=== PATIENT | female | born 1940 | race Caucasian/White ===

== ENCOUNTER 2016-07-28 10:56 | Inpatient (IN) | payer MEDICARE ==
[~2016-07-28] VITALS: Ht 157.5 cm; Wt 61.9 kg
[2016-07-28 04:24] VITALS: BP_SYST 158; BP_SYST 161; RESP 20; TEMP 98.2; BMI 25.0
[2016-07-28] MEDS ORDERED: DIPHENHYDRAMINE 50 MG/ML VIAL ONE (12:37)
[2016-07-28] MEDS ORDERED: DILAUDID 1 MG/ML AMP ONE (12:39)
[2016-07-28] MEDS ORDERED: METHYLPRED SOD SUCC 125 MG/2 ML VIAL ONE (12:39)
[2016-07-28] MEDS ORDERED: SODIUM CHLORIDE 0.9% 100 ML IV ONE (15:00)
[2016-07-28] MEDS ORDERED: CEFTRIAXONE 1 GM VIAL ONE (15:00)
[2016-07-28 16:24] VITALS: BP_SYST 158; BP_SYST 161; RESP 20; TEMP 98.2; Ht 157.5 cm; Wt 61.9 kg
[2016-07-28] MEDS ORDERED: DIPHENHYDRAMINE 25 MG CAP PO PRN (18:30)
[2016-07-28] MEDS ORDERED: SODIUM CHLORIDE 0.45% 1,000 ML IV SCH (18:30)
[2016-07-28] MEDS ORDERED: ACETAMINOPHEN 325 MG TAB PO PRN (18:30)
[2016-07-28 19:45] VITALS: BP_SYST 166; RESP 20; TEMP 99.4
[2016-07-28] MEDS: METHYLPRED SOD SUCC 40 MG VIAL IV SCH (20:20)
[2016-07-28] MEDS: PANTOPRAZOLE 40 MG TAB PO SCH (20:21)
[2016-07-28] MEDS: SUCRALFATE 1 GM TAB PO SCH (20:21)
[2016-07-28] MEDS: FLINTSTONES COMPLETE PO SCH (20:21)
[2016-07-28] MEDS: amLODIPine 5 MG TAB PO SCH (20:21)
[2016-07-28] MEDS: ENOXAPARIN 30 MG/0.3 ML SYR SUBQ SCH (20:22)
[2016-07-28 22:52] VITALS: BP_SYST 157; RESP 20; TEMP 98.4
[2016-07-28] MEDS: SODIUM BICARB 8.4% 100 ML in SODIUM CHLORIDE 0.45% 1,000 ML IV SCH (23:03)
[2016-07-29] MEDS: METHYLPRED SOD SUCC 40 MG VIAL IV SCH ×3 (00:29→15:12)
[2016-07-29 02:46] VITALS: BP_SYST 129; RESP 20; TEMP 99.6
[2016-07-29] MEDS: PANTOPRAZOLE 40 MG TAB PO SCH ×2 (06:31→15:12)
[2016-07-29] MEDS: SUCRALFATE 1 GM TAB PO SCH ×3 (06:31→15:12)
[2016-07-29 07:08] VITALS: BP_SYST 143; RESP 18; TEMP 98.7
[2016-07-29] MEDS ORDERED: MISSING DOSE XX ONE ×2 (07:30→22:35)
[2016-07-29] MEDS: CEFTRIAXONE 1 GM in SODIUM CHLORIDE 0.9% 50 ML IV SCH (08:39)
[2016-07-29] MEDS: amLODIPine 5 MG TAB PO SCH (08:39)
[2016-07-29] MEDS: FLINTSTONES COMPLETE PO SCH (08:39)
[2016-07-29] MEDS: SODIUM BICARB 8.4% 100 ML in SODIUM CHLORIDE 0.45% 1,000 ML IV SCH (08:40)
[2016-07-29] MEDS: ENOXAPARIN 30 MG/0.3 ML SYR SUBQ SCH (08:40)
[2016-07-29] MEDS: IRON SUCROSE COMPLEX 400 MG in SODIUM CHLORIDE 0.9% 250 ML IV SCH (10:03)
[2016-07-29 10:44] VITALS: BP_SYST 140; RESP 17; TEMP 98
[2016-07-29 15:47] VITALS: BP_SYST 118; RESP 18; TEMP 97.7
[2016-07-29 19:09] VITALS: BP_SYST 125; RESP 20; TEMP 98
[2016-07-29 23:00] VITALS: BP_SYST 129; RESP 20; TEMP 98.2
[2016-07-30] MEDS: METHYLPRED SOD SUCC 40 MG VIAL IV SCH ×4 (00:23→23:18)
[2016-07-30] MEDS: SODIUM BICARB 8.4% 100 ML in SODIUM CHLORIDE 0.45% 1,000 ML IV SCH ×2 (01:37→19:53)
[2016-07-30 02:59] VITALS: BP_SYST 146; RESP 20; TEMP 98
[2016-07-30] MEDS: SUCRALFATE 1 GM TAB PO SCH ×3 (06:12→17:15)
[2016-07-30] MEDS: PANTOPRAZOLE 40 MG TAB PO SCH ×2 (06:12→17:15)
[2016-07-30] MEDS ORDERED: SALINE FLUSH 5 ML FLUSH PRN (06:15)
[2016-07-30] MEDS: SODIUM CHLORIDE 0.9% FLUSH BAG 500 ML IV SCH (06:31)
[2016-07-30 07:15] VITALS: BP_SYST 133; RESP 19; TEMP 97.5
[2016-07-30] MEDS: CEFTRIAXONE 1 GM in SODIUM CHLORIDE 0.9% 50 ML IV SCH (08:16)
[2016-07-30] MEDS: SALINE FLUSH 5 ML FLUSH SCH ×2 (08:17→21:00)
[2016-07-30] MEDS: FLINTSTONES COMPLETE PO SCH (08:18)
[2016-07-30] MEDS: amLODIPine 5 MG TAB PO SCH (08:18)
[2016-07-30] MEDS: ENOXAPARIN 30 MG/0.3 ML SYR SUBQ SCH (08:21)
[2016-07-30] MEDS: IRON SUCROSE COMPLEX 400 MG in SODIUM CHLORIDE 0.9% 250 ML IV SCH (08:54)
[2016-07-30 10:57] VITALS: BP_SYST 142; RESP 18; TEMP 97.8
[2016-07-30 14:46] VITALS: BP_SYST 153; RESP 18; TEMP 97.6
[2016-07-30] MEDS ORDERED: MISSING DOSE XX ONE (18:10)
[2016-07-30 19:42] VITALS: BP_SYST 160; RESP 20; TEMP 98.1
[2016-07-31] VITALS (7 sets, daily range): BP systolic 147–163; RESP 18–22; TEMP 97.7–98.6
[2016-07-31] MEDS: NEB-ALBUTEROL 2.5 MG/3 ML INH ONE ×2 (03:15→03:17)
[2016-07-31] MEDS: DUONEB INH PRN ×6 (03:18→22:54)
[2016-07-31] MEDS: SODIUM CHLORIDE 0.9% FLUSH BAG 500 ML IV SCH (06:16)
[2016-07-31] MEDS: SUCRALFATE 1 GM TAB PO SCH ×3 (06:17→15:42)
[2016-07-31] MEDS: PANTOPRAZOLE 40 MG TAB PO SCH ×2 (06:17→15:42)
[2016-07-31] MEDS: CEFTRIAXONE 1 GM in SODIUM CHLORIDE 0.9% 50 ML IV SCH (08:31)
[2016-07-31] MEDS: METHYLPRED SOD SUCC 40 MG VIAL IV SCH ×2 (08:31→15:42)
[2016-07-31] MEDS: amLODIPine 5 MG TAB PO SCH (08:33)
[2016-07-31] MEDS: ENOXAPARIN 30 MG/0.3 ML SYR SUBQ SCH (08:34)
[2016-07-31] MEDS: FLINTSTONES COMPLETE PO SCH (08:35)
[2016-07-31] MEDS ORDERED: Furosemide 100 MG/10 ML VIAL IV ONE (08:45)
[2016-07-31] MEDS ORDERED: SALINE FLUSH 10 ML FLUSH PRN (10:05)
[2016-07-31] MEDS: SALINE FLUSH 5 ML FLUSH SCH (10:05)
[2016-07-31] MEDS: IRON SUCROSE COMPLEX 400 MG in SODIUM CHLORIDE 0.9% 250 ML IV SCH (10:26)
[2016-07-31] MEDS: SALINE FLUSH 10 ML FLUSH SCH ×2 (12:01→20:10)
[2016-08-01] VITALS (9 sets, daily range): BP systolic 138–184; RESP 18–22; TEMP 97.4–99.2
[2016-08-01] MEDS: METHYLPRED SOD SUCC 40 MG VIAL IV SCH ×3 (00:32→16:34)
[2016-08-01] MEDS: SODIUM CHLORIDE 0.9% FLUSH BAG 500 ML IV SCH ×2 (05:33→06:29)
[2016-08-01] MEDS: PANTOPRAZOLE 40 MG TAB PO SCH ×2 (06:29→16:32)
[2016-08-01] MEDS: SUCRALFATE 1 GM TAB PO SCH ×3 (06:29→16:32)
[2016-08-01] MEDS: DUONEB INH PRN ×4 (06:49→18:36)
[2016-08-01] MEDS: FLINTSTONES COMPLETE PO SCH (08:39)
[2016-08-01] MEDS: amLODIPine 5 MG TAB PO SCH (08:39)
[2016-08-01] MEDS: ENOXAPARIN 30 MG/0.3 ML SYR SUBQ SCH (08:40)
[2016-08-01] MEDS: CEFTRIAXONE 1 GM in SODIUM CHLORIDE 0.9% 50 ML IV SCH (08:40)
[2016-08-01] MEDS: SALINE FLUSH 10 ML FLUSH SCH ×2 (08:41→21:37)
[2016-08-01] MEDS: Furosemide 100 MG/10 ML VIAL IV SCH (16:34)
[2016-08-01] MEDS: ALPRAZOLAM 0.25 MG TAB PO SCH (21:36)
[2016-08-01] MEDS: NYSTATIN 500,000 UNITS/5 ML SUSP SWISH.SWAL SCH (21:37)
[2016-08-02] VITALS (11 sets, daily range): BP systolic 128–165; RESP 20–24; TEMP 97.4–98.2
[2016-08-02] MEDS: ALPRAZOLAM 0.25 MG TAB PO SCH ×3 (03:43→20:40)
[2016-08-02] MEDS: SODIUM CHLORIDE 0.9% FLUSH BAG 500 ML IV SCH ×2 (06:00→06:09)
[2016-08-02] MEDS: SUCRALFATE 1 GM TAB PO SCH ×3 (06:08→16:30)
[2016-08-02] MEDS: PANTOPRAZOLE 40 MG TAB PO SCH ×2 (06:08→16:30)
[2016-08-02] MEDS: DUONEB INH PRN ×4 (07:18→22:56)
[2016-08-02] MEDS: SALINE FLUSH 10 ML FLUSH SCH ×2 (10:03→20:00)
[2016-08-02] MEDS: NYSTATIN 500,000 UNITS/5 ML SUSP SWISH.SWAL SCH ×4 (10:03→20:41)
[2016-08-02] MEDS: FLINTSTONES COMPLETE PO SCH (10:04)
[2016-08-02] MEDS: amLODIPine 5 MG TAB PO SCH (10:05)
[2016-08-02] MEDS: ENOXAPARIN 30 MG/0.3 ML SYR SUBQ SCH (10:05)
[2016-08-02] MEDS: CEFTRIAXONE 1 GM in SODIUM CHLORIDE 0.9% 50 ML IV SCH (10:06)
[2016-08-02] MEDS: Furosemide 100 MG/10 ML VIAL IV SCH (10:06)
[2016-08-02] MEDS: SODIUM BICARB 8.4% 50 ML in SODIUM CHLORIDE 0.45% 1,000 ML IV SCH (11:26)
[2016-08-02] MEDS ORDERED: MISSING DOSE XX ONE (23:45)
[2016-08-03] VITALS (7 sets, daily range): BP systolic 149–159; RESP 20; TEMP 97.3–97.9
[2016-08-03] MEDS: SODIUM BICARB 8.4% 50 ML in SODIUM CHLORIDE 0.45% 1,000 ML IV SCH (00:37)
[2016-08-03] MEDS: ALPRAZOLAM 0.25 MG TAB PO SCH ×2 (03:20→12:00)
[2016-08-03] MEDS: SODIUM CHLORIDE 0.9% FLUSH BAG 500 ML IV SCH ×2 (06:00→06:12)
[2016-08-03] MEDS: SUCRALFATE 1 GM TAB PO SCH ×3 (06:11→15:57)
[2016-08-03] MEDS: PANTOPRAZOLE 40 MG TAB PO SCH ×2 (06:11→15:57)
[2016-08-03] MEDS: DUONEB INH PRN ×3 (06:38→14:23)
[2016-08-03] MEDS: SALINE FLUSH 10 ML FLUSH SCH (08:00)
[2016-08-03] MEDS: amLODIPine 5 MG TAB PO SCH (08:50)
[2016-08-03] MEDS: FLINTSTONES COMPLETE PO SCH (08:50)
[2016-08-03] MEDS: ENOXAPARIN 30 MG/0.3 ML SYR SUBQ SCH (08:50)
[2016-08-03] MEDS: NYSTATIN 500,000 UNITS/5 ML SUSP SWISH.SWAL SCH ×3 (08:50→15:57)
[2016-08-03] MEDS: CEFTRIAXONE 1 GM in SODIUM CHLORIDE 0.9% 50 ML IV SCH (09:06)
[2016-08-03] MEDS ORDERED: MISSING DOSE XX ONE (17:35)
== END 2016-08-03 19:07 | disposition home health service (06) | DRG 602 ==
LOC: ENRESERVDT → ENRESERVTM → ER 10:56 → ENPENDDIS 15:38 → EMR 15:38 → 3NT 16:26
PROVIDERS: ADMIT Internal Medicine; ATTEND Internal Medicine
CPT/HCPCS: 71010; 76770; 80053; 81050; 82436; 82575; 84156; 84166; 84300; 85007; 85025; 85027; 85652; 86141; 93306; 93971; 94640; 94799; 96365; 96375

== ENCOUNTER 2016-08-11 10:31 | Inpatient (IN) | payer MEDICARE ==
[~2016-08-11] VITALS: Ht 160 cm; Wt 71.4 kg
[2016-08-11] MEDS ORDERED: DUONEB INH ONE ×2 (11:23)
[2016-08-11] MEDS ORDERED: SODIUM CHLORIDE 0.9% 1,000 ML ONE (12:19)
[2016-08-11] MEDS ORDERED: CEFTRIAXONE 1 GM VIAL ONE (14:14)
[2016-08-11] MEDS ORDERED: SODIUM CHLORIDE 0.9% 100 ML IV ONE (14:14)
[2016-08-11] MEDS ORDERED: AZITHROMYCIN 500 MG VIAL IV ONE (15:30)
[2016-08-11] MEDS ORDERED: SODIUM CHLORIDE 0.9% 250 ML IV ONE (15:30)
[2016-08-11] MEDS ORDERED: VANCOMYCIN 1,000 MG in SODIUM CHLORIDE 0.9% 250 ML IV ONE (16:25)
[2016-08-11 18:05] VITALS: BP_SYST 120; BP_SYST 122; RESP 18; TEMP 97.6
[2016-08-11 18:07] VITALS: Ht 160 cm; Wt 71.4 kg
[2016-08-11] MEDS ORDERED: DUONEB INH SCH (19:00)
[2016-08-11] MEDS: DUONEB INH SCH ×2 (19:00→23:42)
[2016-08-11 19:11] VITALS: BP_SYST 123; RESP 14; TEMP 97.4
[2016-08-11] MEDS: PIPERACIL/TAZO 2.25GM/50ML 50 ML IV SCH ×2 (19:45→23:41)
[2016-08-11] MEDS ORDERED: MISSING DOSE XX ONE (20:45)
[2016-08-11] MEDS: POTASSIUM CHLORIDE IV SCH (21:06)
[2016-08-11] MEDS: DEXTROSE 5% IV SCH (21:06)
[2016-08-11 22:28] VITALS: BP_SYST 134; RESP 10; TEMP 97.5
[2016-08-11 23:44] VITALS: RESP 20
[2016-08-12] VITALS (8 sets, daily range): BP systolic 127–142; RESP 12–16; TEMP 97.4–98.7
[2016-08-12] MEDS: DUONEB INH SCH ×6 (02:40→22:59)
[2016-08-12] MEDS ORDERED: MISSING DOSE XX ONE ×3 (05:05→19:35)
[2016-08-12] MEDS: PANTOPRAZOLE 40 MG TAB PO SCH ×2 (05:18→15:34)
[2016-08-12] MEDS: SUCRALFATE 1 GM TAB PO SCH ×3 (05:18→17:18)
[2016-08-12] MEDS: DEXTROSE 5% IV SCH ×2 (07:20→19:10)
[2016-08-12] MEDS: POTASSIUM CHLORIDE IV SCH ×2 (07:20→19:10)
[2016-08-12] MEDS: PIPERACIL/TAZO 2.25GM/50ML 50 ML IV SCH ×3 (08:28→23:52)
[2016-08-12] MEDS: amLODIPine 10 MG TAB PO SCH (08:29)
[2016-08-12] MEDS ORDERED: PANTOPRAZOLE 20 MG TAB PO SCH (09:00)
[2016-08-12] MEDS ORDERED: PHARMACY TO DOSE ZOSYN IV SCH (12:50)
[2016-08-12] MEDS ORDERED: PHARMACY TO DOSE VANCOMYCIN IV SCH (12:50)
[2016-08-12] MEDS ORDERED: VANCOMYCIN 1,000 MG in SODIUM CHLORIDE 0.9% 250 ML IV ONE (14:35)
[2016-08-13] VITALS (7 sets, daily range): BP systolic 120–148; RESP 16–24; TEMP 95–97.8
[2016-08-13] MEDS: DUONEB INH SCH ×6 (02:41→23:00)
[2016-08-13] MEDS ORDERED: MISSING DOSE XX ONE (05:25)
[2016-08-13] MEDS: SUCRALFATE 1 GM TAB PO SCH ×3 (05:26→17:23)
[2016-08-13] MEDS: POTASSIUM CHLORIDE IV SCH (05:36)
[2016-08-13] MEDS: DEXTROSE 5% IV SCH (05:36)
[2016-08-13] MEDS: amLODIPine 10 MG TAB PO SCH (08:34)
[2016-08-13] MEDS: PIPERACIL/TAZO 2.25GM/50ML 50 ML IV SCH (08:34)
[2016-08-13] MEDS: PANTOPRAZOLE 40 MG TAB PO SCH ×2 (08:34→16:23)
[2016-08-13] MEDS: LINEZOLID 600 MG TAB PO SCH ×2 (10:50→20:41)
[2016-08-13] MEDS: Furosemide 20 MG/2 ML VIAL IV SCH (17:23)
[2016-08-14] MEDS: DUONEB INH SCH ×4 (03:09→15:00)
[2016-08-14 03:22] VITALS: BP_SYST 118; RESP 16; TEMP 96.3
[2016-08-14] MEDS: SUCRALFATE 1 GM TAB PO SCH ×4 (06:06→16:15)
[2016-08-14] MEDS: PANTOPRAZOLE 40 MG TAB PO SCH ×2 (06:06→16:00)
[2016-08-14 07:00] VITALS: BP_SYST 130; RESP 16; TEMP 97.1
[2016-08-14] MEDS: amLODIPine 10 MG TAB PO SCH (08:17)
[2016-08-14] MEDS: LINEZOLID 600 MG TAB PO SCH (08:17)
[2016-08-14] MEDS: Furosemide 20 MG/2 ML VIAL IV SCH ×2 (08:17→16:15)
[2016-08-14 11:00] VITALS: BP_SYST 148; RESP 16; TEMP 97.3
[2016-08-14 14:50] VITALS: BP_SYST 132; RESP 16; TEMP 95.9
[2016-08-14 15:36] VITALS: BP_SYST 132; RESP 16; TEMP 95.9
== END 2016-08-14 17:58 | disposition hospice, home (50) | DRG 917 ==
LOC: ENRESERVTM → ENRESERVDT → ER 10:31 → ENPENDDIS 16:13 → EMR 16:13 → 4THE 17:09
PROVIDERS: ADMIT Internal Medicine; ATTEND Internal Medicine
DX: T40.4X2A Poisoning by other synthetic narcotics, intentional self-harm, initial encounter (principal); J96.01 Acute respiratory failure with hypoxia; J69.0 Pneumonitis due to inhalation of food and vomit; N18.6 End stage renal disease; I12.0 Hypertensive chronic kidney disease with stage 5 chronic kidney disease or end stage renal disease; E87.0 Hyperosmolality and hypernatremia; N39.0 Urinary tract infection, site not specified; E86.0 Dehydration; D64.9 Anemia, unspecified; J44.9 Chronic obstructive pulmonary disease, unspecified; I25.10 Atherosclerotic heart disease of native coronary artery without angina pectoris; Z95.1 Presence of aortocoronary bypass graft; Z90.5 Acquired absence of kidney; F17.210 Nicotine dependence, cigarettes, uncomplicated; Z51.5 Encounter for palliative care; Z66 Do not resuscitate; E11.22 Type 2 diabetes mellitus with diabetic chronic kidney disease; K21.9 Gastro-esophageal reflux disease without esophagitis; F32.9 Major depressive disorder, single episode, unspecified; B95.2 Enterococcus as the cause of diseases classified elsewhere; Z16.21 Resistance to vancomycin; F10.21 Alcohol dependence, in remission; K70.31 Alcoholic cirrhosis of liver with ascites
CPT/HCPCS: 36415; 36600; 71010; 71250; 80053; 80202; 80307; 80320; 80329; 81001; 82553; 82803; 83605; 83880; 84145; 84439; 84443; 84484; 85025; 85610; 87040; 87077; 87088; 87186; 93005; 94640; 94799